=== PATIENT | male | born 1995 | race Caucasian/White ===

== ENCOUNTER 2017-04-01 05:31 | Emergency (ER) | payer SELFPAY ==
[~2017-04-01] VITALS: Ht 177.8 cm; Wt 83.9 kg
[2017-04-01 05:45] VITALS: BP 123/70
[2017-04-01] MEDS ORDERED: LIDOCAINE 1% HCL (LOCAL ANESTH.) INJ 20ML MDV ID ONE (06:30)
[2017-04-01] MEDS ORDERED: BACITRACIN TOP OINT 1 UD PKG TOP ONE (06:30)
== END 2017-04-01 08:08 | disposition home or self-care (01) ==
LOC: EDBD 05:31 → ER 05:40
DX: S41.012A Laceration without foreign body of left shoulder, initial encounter (principal); S21.219A Laceration without foreign body of unspecified back wall of thorax without penetration into thoracic cavity, initial encounter; W26.8XXA Contact with other sharp object(s), not elsewhere classified, initial encounter; Y93.89 Activity, other specified; Y99.8 Other external cause status; Y92.89 Other specified places as the place of occurrence of the external cause
CPT/HCPCS: 12002; 99284; J2001